=== PATIENT | female | born 2000 | race Caucasian/White ===

== ENCOUNTER 2021-10-27 20:25 | Emergency (ER) | payer OTHER ==
[2021-10-27 20:41] VITALS: O2SAT 96
--- NOTE | 2021-10-27 20:51 | ERPHSYRPT ---
- History of Present Illness Time Seen by Provider: 10/27/21 20:37 Source: patient Exam Limitations: no limitations Physician History: The patient is a 21-year-old female who presents with a chief complaint of a rectal foreign body. Of note, the patient states that she got "butt plug" stuck in her rectum roughly about an hour ago. She reportedly tried to have a bowel movement and tried "everything" to remove the foreign body before coming to the emergency department. She denies any rectal bleeding. She denies any significant pain. She reportedly only takes Adipex for weight loss medication but denies any significant medical problems. Her last meal cholesterol intake was over 6 hours ago. Timing/Duration: today Associated Symptoms: No nausea, No vomiting, No abdominal pain Allergies/Adverse Reactions: tramadol Adverse Reaction (Severe, Verified 10/27/21 20:48) Hiv Home Medications: Phentermine HCl [Adipex-P] 37.5 mg PO DAILY 10/27/21 [History] - Review of Systems Constitutional: No Symptoms Abdominal/Gastrointestinal: Other (Rectal foreign body) - Past Medical History Pertinent Past Medical History: Yes - Nursing Vital Signs Nursing Vital Signs: Initial Vital Signs Temperature 98.2 F 10/27/21 20:36 Pulse Rate 92 H 10/27/21 20:36 Respiratory Rate 18 10/27/21 20:36 Blood Pressure 134/79 10/27/21 20:36 O2 Sat by Pulse Oximetry 96 10/27/21 20:36 Pain Scale Pain Intensity 0 - Physical Exam General Appearance: no apparent distress, alert, obese Neck Exam: normal inspection Respiratory Exam: normal breath sounds, No chest tenderness, No lungs clear, No respiratory distress, No airway intact Cardiovascular Exam: regular rate/rhythm, normal heart sounds, normal peripheral pulses, No murmur, No friction rub, No gallop, No capillary refill <2 sec Gastrointestinal/Abdomen Exam: soft, No tenderness, No distention Back Exam: normal inspection Extremity Exam: normal inspection Neurologic Exam: alert, oriented x 3, cooperative Skin Exam: normal color, warm, dry, No rash SpO2: 96 O2 Delivery: Room Air Procedures - Procedural Sedation Indication: other (Removal of rectal foreign body) Preparation: consent signed, capnographry, iv access, previous anesthia/sedation without complications, constant attendance, night monitor, oxygen, procedure explained, pulse oximeter, suction Sedation Parenteral: Ketamine Response during procedure: moderate sedation, handled secretions adequately, maintained airway well, oxygenation stable, vital signs stable Post-Procedure Response: return to baseline mental status, vital signs stable - Course Nursing assessment & vital signs reviewed: Yes - Radiology Exams Pelvis X-ray Interpretation: Interpreted by me, Reviewed by me (Appears to be a possible retained foreign body in the rectum that is radiolucent. Also could visualize the patient's IUD.) Ordered Tests: Medication Summary Discontinued Medications Generic Name Dose Route Start Last Admin Trade Name Gaston PRN Reason Stop Dose Admin Flumazenil Confirm 10/27/21 21:44 Flumazenil 0.5 Mg/5 Ml Vial Administered 10/27/21 21:45 Dose 0.1 mg .ROUTE .STK-MED ONE Sodium Chloride Confirm 10/28/21 00:20 Sodium Chloride 0.9% 1000 Ml Administered 10/28/21 00:21 Dose 1,000 mls @ ud .ROUTE .STK-MED ONE Ketamine HCl 75 mg 10/27/21 21:27 10/28/21 00:31 Ketamine Hcl 50 Mg/Ml IV 10/27/21 21:28 150 mg STAT ONE Administration Ondansetron HCl 4 mg 10/27/21 21:26 12 00:24 Ondansetron Hcl 4 Mg/2 Ml Vial IV 10/27/21 21:27 4 mg STAT ONE Administration Ondansetron HCl Confirm 10/27/21 21:43 Ondansetron Hcl 4 Mg/2 Ml Vial Administered 10/27/21 21:44 Dose 4 mg .ROUTE .STK-MED ONE Ondansetron HCl Confirm 10/28/21 00:20 Ondansetron Hcl 4 Mg/2 Ml Vial Administered 10/28/21 00:21 Dose 4 mg .ROUTE .STK-MED ONE - Progress Progress: improved Progress Note: 10/27/21 21:25 Rectal exam revealed no visualized foreign body however digital rectal exam I could feel a hard plastic foreign body lodged in the rectum but it was too deep for me to be grasped and removed. Will likely need to perform a conscious sedation and endoscopy to retrieve the foreign body. 10/27/21 21:55 I discussed risk benefits of conscious sedation with the patient in addition to risk benefits of retrieval/removal of rectal foreign body including the risk of perforation of her rectum and colon and the patient agreed to proceed with both procedures. I also informed her that if I was unsuccessful in removing the foreign body she would likely need to go to the OR after I speak with general surgery. 10/27/21 23:45 I checked on the patient and she appeared to be stable with no additional complaints. I informed her that we had a delay in the conscious sedation and attempt to retrieve the foreign body due to the influx of patients in the emergency department. The patient was thankful and remained patient and was understanding. 10/28/21 00:44 Removal of rectal foreign body was performed under conscious sedation using k etamine (refer to sedation note for details). The patient was placed in the lithotomy position. I attempted to use an anoscope to directly visualize the foreign body after being able to feel the foreign body with my finger on digital rectal exam. Anoscopy was unsuccessful due to the patient having some movement despite conscious sedation and I resorted to using a pair of ring forceps under direct guidance with my index finger to clamp the end of the foreign body and remove the foreign body was slow and gentle pressure. I was able to remove a single black-colored plastic what appeared to be butt plug/sex toy from the rectum/anus. There is no bleeding or any evidence of injury to the sphincter. The patient tolerated the procedure well. 10/28/21 00:58 The patient is awake and alert according to the patient's nurse. This is at 1:13 AM. 10/28/21 01:17 The patient reportedly was wanted to leave without completing her observation time. I informed her to return to the emergency department if she were to develop any brisk rectal bleeding however I did warn her that she may have some minor rectal bleeding which would be normal. She was also cautioned to return if she were to develop abdominal pain, fever chills or any abdominal distention as this could be signs that she may have a perforated rectum. She agreed with and verbally understood the discharge plan. Counseled pt/family regarding: diagnosis, need for follow-up, rad results - Departure Departure Disposition: Home Clinical Impression: Foreign body in anus and rectum, initial encounter Condition: Stable Critical Care Time: No Referrals: CURTIS SHAH MD [Primary Care Provider] - Follow up/PCP as directed Instructions: Removal of Foreign Body in Skin Additional Instructions: You may have some minor rectal bleeding however if the bleeding is brisk and progressively increases you will need to return to the emergency department for further evaluation management. If you start to develop progressive worsening abdominal pain and/or fever or chills he will also need to return to the emergency department immediately as this could be a sign that your rectum has been perforated. Please refrain from inserting foreign bodies into your rectum/anus to include sex toys in the future.
[2021-10-27] MEDS ORDERED: Zofran 4 MG/2 ML VIAL IV ONE (21:26)
[2021-10-27] MEDS ORDERED: Ketamine HCl 50 MG/ML IV ONE (21:27)
[2021-10-27] MEDS ORDERED: Zofran 4 MG/2 ML VIAL ONE (21:43)
[2021-10-27] MEDS ORDERED: Romazicon 0.5 MG/5 ML Injection ONE (21:44)
[2021-10-28] MEDS ORDERED: Sodium Chloride 0.9% 1000 ML 0 ML ONE (00:20)
[2021-10-28] MEDS ORDERED: Zofran 4 MG/2 ML VIAL ONE (00:20)
[2021-10-28 01:19] VITALS: BP 139/90; PULSE 122
--- NOTE | 2021-10-28 08:45 | XRAY ---
Indication: Rectal foreign body. Comparison: None Single AP pelvis demonstrates IUD. No other bony, articular, or or soft tissue abnormalities.
== END 2021-10-28 01:30 | disposition home or self-care (01) ==
LOC: ED 20:25
DX: T18.5XXA Foreign body in anus and rectum, initial encounter (principal)
CPT/HCPCS: 36000; 46608; 72170; 94799; 96374; 99284; J2405

== ENCOUNTER 2022-04-27 12:44 | Emergency (ER) | payer OTHER ==
[2022-04-27] MEDS ORDERED: TORAdol 30 mg Injection IM ONE (13:32)
[2022-04-27] MEDS ORDERED: Norflex 60 MG/2 ML IM ONE (13:36)
[2022-04-27] MEDS ORDERED: TORAdol 30 mg Injection ONE (13:38)
[2022-04-27] MEDS ORDERED: Norflex 60 MG/2 ML ONE (13:38)
[2022-04-27] MEDS ORDERED: Zofran 4 MG/2 ML VIAL IV ONE (13:48)
--- NOTE | 2022-04-27 14:20 | ERPHSYRPT ---
- History of Present Illness Time Seen by Provider: 04/27/22 12:49 Source: patient Exam Limitations: no limitations Patient Subjective Stated Complaint: Lower back pain Triage Nursing Assessment: Patient ambulated back to ED and transferred self to bed. Patient A+O x3. Patient's skin pink, warm and dry. Patient states she has been having occasional back pain but today she was playing softball and bent over and had a hard time standing back up. Patient states the pain was a 10/10 and she felt like she was going to pass out. Patient complains of low mid back pain that goes down segundo legs. No visible injuries or bruising noted. Physician History: 21-year-old female with history of low back pain off and on for almost a month presented in the ER with worsening back pain since morning when she bent over while playing baseball and was hard time standing back up. She is complaining of moderate to severe sharp pain low back across with some radiation to upper legs more on the left side without numbness tingling weakness. No perineal numbness, difficulty urination or loss of bowel control. No direct trauma to the back. Patient is ambulating in the ER with minimal limp. Timing/Duration: week(s), intermittent, gradual onset, worse Method of Injury: bending Quality: sharp Back Pain Location: lumbar spine, paraspinous muscles Back Pain Radiation: upper legs Severity of Pain-Max: severe Severity of Pain-Current: severe Modifying Factors: Improves With: immobilization. Worsens With: movement Associated Symptoms: lower back pain, muscle spasms, No urinary incontinence, No loss of bowel control, No problems urinating, No weakness, No sensory/motor loss, No tingling in legs/feet Previous symptoms: same symptoms as today Allergies/Adverse Reactions: tramadol Adverse Reaction (Severe, Verified 04/27/22 12:50) Hives Hx Tetanus, Diphtheria Vaccination/Date Given: Yes Hx Influenza Vaccination/Date Given: Yes Hx Pneumococcal Vaccination/Date Given: No Immunizations Up to Date: Yes Travel Risk - International Travel Have you traveled outside of the country in past 3 weeks: No - Coronavirus Screening Are you exhibiting any of the following symptoms?: No Close contact with a COVID-19 positive Pt in past 14-21 Days: No - Vaccine Status Have you recieved a Covid-19 vaccination: Yes Diet [employer]: Moderna - Vaccination Dates Date of 2cond Vaccination (if applicable): 12/2020 Comment: booster 09/2021 - Review of Systems Constitutional: No Symptoms Ears, Nose, & Throat: No Symptoms Respiratory: No Symptoms Cardiac: No Symptoms Abdominal/Gastrointestinal: No Symptoms Genitourinary Symptoms: No Symptoms Musculoskeletal: Back Pain Skin: No Symptoms Neurological: No Symptoms Psychological: No Symptoms Endocrine: No Symptoms Hematologic/Lymphatic: No Symptoms Immunological/Allergic: No Symptoms - Past Medical History Pertinent Past Medical History: Yes Musculoskeletal History: Fractures Other Medical History: rt foot with plate - Past Surgical History Past Surgical History: Yes Other Surgical History: rt foot with plate - Social History Smoking Status: Never smoker Exposure to second hand smoke: No Drug Use: none Patient Lives Alone: No - Female History Hx Last Menstrual Period: IUD Hx Now: No - Nursing Vital Signs Nursing Vital Signs: Initial Vital Signs Temperature 97.8 F 04/27/22 12:52 Pulse Rate 79 04/27/22 12:52 Respiratory Rate 18 04/27/22 12:52 Blood Pressure 152/70 04/27/22 12:52 O2 Sat by Pulse Oximetry 95 04/27/22 12:52 Pain Scale Pain Intensity 10 - Physical Exam General Appearance: no apparent distress, alert Eye Exam: PERRL/EOMI Neck Exam: normal inspection, supple, full range of motion Respiratory Exam: normal breath sounds, lungs clear Cardiovascular Exam: regular rate/rhythm, normal heart sounds Gastrointestinal Exam: soft, normal bowel sounds, No tenderness Back Exam: normal inspection, normal range of motion, muscle spasm, point tenderness (Bilateral sacroiliac area tenderness. No midline tenderness at all. Intact neuro exam lower extremities. Straight leg raising test positive at 60 degrees on the left.), No vertebral tenderness Extremity Exam: normal inspection, normal range of motion, pelvis stable Neurologic Exam: alert, oriented x 3, cooperative, No motor deficits, No sensory deficit Skin Exam: normal color SpO2 Interpretation: normal SpO2: 95 O2 Delivery: Room Air Ordered Tests: Medication Summary Discontinued Medications Generic Name Dose Route Start Last Admin Trade Name Freq PRN Reason Stop Dose Admin Ketorolac Tromethamine 30 mg 04/27/22 13:32 04/27/22 13:41 Ketorolac Tromethamine 30 Mg/Ml Inj IM 04/27/22 13:33 30 mg STAT ONE Administration Ketorolac Tromethamine Confirm 04/27/22 13:38 Ketorolac Tromethamine 30 Mg/Ml Inj Administered 04/27/22 13:39 Dose 30 mg .ROUTE .STK-MED ONE Morphine Sulfate Confirm 04/27/22 14:55 Morphine Sulfate 4 Mg/Ml Injection Administered 04/27/22 14:56 Dose 4 mg .ROUTE .STK-MED ONE Morphine Sulfate 4 mg 04/27/22 15:35 04/27/22 14:57 Morphine Sulfate 4 Mg/Ml Injection IV 04/27/22 15:36 4 mg STAT ONE Administration Ondansetron HCl 4 mg 04/27/22 13:48 04/27/22 13:50 Ondansetron Hcl 4 Mg/2 Ml Vial IV 04/27/22 13:49 Not Given STAT ONE Orphenadrine Citrate 60 mg 04/27/22 13:36 04/27/22 13:41 Orphenadrine Citrate 60 Mg/2 Ml Vial IM 04/27/22 13:37 60 mg STAT ONE Administration Orphenadrine Citrate Confirm 04/27/22 13:38 Orphenadrine Citrate 60 Mg/2 Ml Vial Administered 04/27/22 13:39 Dose 60 mg .ROUTE .STK-MED ONE - Progress Progress: improved Progress Note: 21-year-old is evaluated for low back pain with negative neuro exam in lower extremities. She is given Toradol and Norflex, on reevaluation feeling better but not completely resolved and given morphine and able to ambulate better in the ER. I believe patient has low back strain, will give her NSAID and muscle relaxants to go home and outpatient follow-up recommended. She is recommended to avoid any sports activity until cleared by primary care for 04/27/22 15:44 Counseled pt/family regarding: diagnosis, need for follow-up - Departure Departure Disposition: Home Clinical Impression: Low back strain Condition: Stable Critical Care Time: No Referrals: CURTIS SHAH MD [Primary Care Provider] - Follow Up with PCP/3 days Instructions: Low Back Pain (DC), Sciatica (DC) Additional Instructions: Take Tylenol/ibuprofen as needed. Avoid exertional activities. Follow-up with primary care for reevaluation. Return to ER for worsening pain, numbness tingling weakness of lower extremities/loss of bowel or bladder control or perineal numbness. Prescriptions: Ibuprofen 600 mg PO Q6HPRN PRN 10 Days #20 tablet PRN Reason: Pain Cyclobenzaprine HCl 10 mg [Flexeril 10 MG] 10 mg PO TID #20 tablet
[2022-04-27] MEDS ORDERED: MORPHINE SULFATE 4 MG INJ ONE (14:55)
[2022-04-27] MEDS ORDERED: MORPHINE SULFATE 4 MG INJ IV ONE (15:35)
[2022-04-27 15:53] VITALS: BP 133/81; PULSE 88; O2SAT 98
== END 2022-04-27 15:53 | disposition home or self-care (01) ==
LOC: ED 12:44
DX: S39.012A Strain of muscle, fascia and tendon of lower back, initial encounter (principal); X50.1XXA Overexertion from prolonged static or awkward postures, initial encounter; Y93.64 Activity, baseball; Y92.320 Baseball field as the place of occurrence of the external cause
CPT/HCPCS: 96372; 99284; J1885; J2270; J2360

== ENCOUNTER 2024-07-24 16:16 | Emergency (ER) | payer OTHER, BC ==
--- NOTE | 2024-07-24 16:32 | ERPHSYRPT ---
- History of Present Illness Time Seen by Provider: 07/24/24 16:32 Source: patient Exam Limitations: no limitations Physician History: The patient, who is 16 weeks and 2 days , presents with a single episode of vaginal bleeding. The bleeding was described as a 'good amount' and was associated with white discharge. There were no clots noted. This is the first time she has experienced bleeding during this . They deny any abdominal pain. Sent in by her OB for US to check FHT and cervical length. FHT on evaluation 142. Timing/Duration: today Activites at Onset: none Quality: other (NA) Onset Location: other (NA) Pain Radiation: none Severity of Pain-Max: none Severity of Pain-Current: none Prior abdominal problems: none Sexual intercourse history: unprotected intercourse Modifying Factors: Improves With: nothing Associated Symptoms: , vaginal discharge, No abdominal pain Allergies/Adverse Reactions: tramadol Adverse Reaction (Severe, Verified 07/24/24 16:33) Hives Home Medications: Aspirin 81 mg PO DAILY 07/24/24 [History] Vit37/Iron/Folic Acid [Prenata Chewable Tablet] 1 each PO DAILY [History] Hx Tetanus, Diphtheria Vaccination/Date Given: Yes Hx Influenza Vaccination/Date Given: Yes Hx Pneumococcal Vaccination/Date Given: No - Review of Systems All Other Systems: Reviewed and Negative - Past Medical History Pertinent Past Medical History: Yes Musculoskeletal History: Fractures Other Medical History: rt foot with plate - Past Surgical History Past Surgical History: Yes Other Surgical History: rt foot with plate - Female History Hx Now: Yes - Social History Smoking Status: Never smoker Exposure to second hand smoke: No Drug Use: none Patient Lives Alone: No - Nursing Vital Signs Nursing Vital Signs: Initial Vital Signs Temperature 98.0 F 07/24/24 16:22 Pulse Rate 89 07/24/24 16:22 Blood Pressure 150/83 07/24/24 16:22 O2 Sat by Pulse Oximetry 99 07/24/24 16:22 Pain Scale Pain Intensity 0 - Physical Exam General Appearance: no apparent distress Respiratory Exam: normal breath sounds, lungs clear, airway intact, No respiratory distress Cardiovascular Exam: regular rate/rhythm, normal heart sounds, capillary refill <2 sec, No edema Gastrointestinal/Abdomen Exam: soft, normal bowel sounds, No tenderness, No distention, No guarding, No rebound - Course Nursing assessment & vital signs reviewed: Yes - Radiology Ultrasound Exam OB Ultrasound: tele radiology report (16w 2d, cephalic, FHR 135, low lying placenta, cervix 4.5cm filled with minimal fluid) - Progress Progress: unchanged Air Movement: good Progress Note: Exam reassuring, FHT 142. US shows cervix 4.5cm with fluid and normal FHT. Discussed with Dr. Horta who recommends no intercourse for 2 weeks and he will see the patient in the office. Blood Culture(s) Obtained: No Antibiotics given: No Discussed with : Maurice Will see patient in: office Counseled pt/family regarding: diagnosis, need for follow-up, rad results Medical Desision Making - Diagnostic Testing Diagnostic test were ordered, analyzed, and reviewed by me: Yes Radiological Interpretation: Reviewed by me, Teleradiologist Report - Risk of complications Low Risk: Low risk of morbidity from additional dx testing or treatment - Departure Departure Disposition: Home Clinical Impression: Intrauterine , Low lying placenta with hemorrhage, second trimester, Vaginal bleeding before 22 weeks gestation Condition: Good Critical Care Time: No Referrals: OSCAR HORTA DO [ACTIVE STAFF] - Follow up/PCP as directed Instructions: Bleeding in Early (DC)
[2024-07-24 16:33] VITALS: TEMP 98
[2024-07-24 18:04] VITALS: BP 105/55; PULSE 84; RESP 18; O2SAT 98
--- NOTE | 2024-07-24 18:13 | XRAY ---
CLINICAL HISTORY: vaginal bleeding in COMPARISON: None. TECHNIQUE: Multiple ultrasound images were obtained through transabdominal & transvaginal approaches for limited OB evaluation. FINDINGS: Gravid uterus with a single Gestational sac. The cervix is long and measures about 4.5 cm, showing hypoechoic minimal fluid content, and could be open. A single intrauterine gestational sac is seen with a normal fetus in cephalic presentation. The heart rate is 135 bpm. The placenta is anterior & probably low-lying. Followup is suggested. IMPRESSION: 1. Single live intrauterine 2. 16 weeks 2 days gestation as per technotes 3. Cephalic presentation. 4. heart rate is 135 bpm. 5. Probably low lying placenta. Followup is suggested 6. An average size of the cervical canal depicted reaching 4.5 cm, filled with minimal fluid content. Disclaimer: anomalies may be present but not detected. Chromosomal abnormalities cannot be ruled out with certainty, even with the normal findings. [facility] ER was called at [phone] at 05:06 PM LOAN CLOSER, 07/24/2024 KEVIN Lima was informed regarding the presence of important medical findings in the report. Electronically Signed by: Melain Mc MD. (07/24/2024 18:08:48 EDT)
== END 2024-07-24 19:04 | disposition home or self-care (01) ==
LOC: ED 16:16
DX: O20.9 Hemorrhage in early pregnancy, unspecified (principal); Z3A.16 16 weeks gestation of pregnancy
CPT/HCPCS: 76817; 99282

== ENCOUNTER 2024-10-31 18:41 | Observation (INO) | payer OTHER, BC ==
[2024-10-31 19:12] VITALS: BP 130/66; PULSE 73; RESP 18; TEMP 97.8; O2SAT 97
[2024-10-31 19:12] LABS: AMNISURE TEST RESULTS NEGATIVE (NEGATIVE)
[2024-10-31 19:30] LABS: Appearance Clear (Clear); Bacteria Few /HPF (None Seen); Bilirubin Negative (Negative); Blood Negative (Negative); Epithelial Cells Rare /HPF (None Seen); Glucose, Urine Negative (Negative); Hyaline Casts NONE SEEN /LPF (0-2); Ketones Negative (Negative); Leukocyte Esterase Negative (Negative); Nitrite Negative (Negative); Ph 6.5 (4.6-8.0); Protein,Urine Dip Negative (Negative); Urobilinogen 0.2 mg/dL (0.2)
[2024-10-31 19:31] LABS: RBC NONE SEEN /HPF (0-5); WBC 0-2 /HPF (0-5)
[2024-10-31 19:59] LABS: Amphetamine,Urine NEGATIVE (NEGATIVE); Barbiturate,Urine NEGATIVE (NEGATIVE); Benzodiazepine,Urine NEGATIVE (NEGATIVE); Cocaine,Urine NEGATIVE (NEGATIVE); Methadone,Urine NEGATIVE (NEGATIVE); Opiate,Urine NEGATIVE (NEGATIVE); PCP,Urine NEGATIVE (NEGATIVE); THC,Urine NEGATIVE (NEGATIVE)
== END 2024-10-31 19:27 | disposition home or self-care (01) ==
LOC: OB 18:41
PROVIDERS: ADMIT Obstetrics & Gynecology; ATTEND Obstetrics & Gynecology
DX: Z34.03 Encounter for supervision of normal first pregnancy, third trimester (principal); Z3A.30 30 weeks gestation of pregnancy
CPT/HCPCS: 80307; 81001; 84112; G0378; G0379